=== PATIENT | male | born 1990 | race Caucasian/White ===

== ENCOUNTER 2017-02-07 19:41 | Emergency (ER) | payer OTHER ==
[~2017-02-07] VITALS: Ht 170.2 cm; Wt 74.0 kg
[2017-02-07 20:56] LABS: HEMATOCRIT 43.5 % (38.0-50.0); MCH 29.3 PG (29.0-34.0); MCHC 33.1 G/DL (30.0-36.0); MCV 88.4 FL (86-99); MEAN PLAT.VOLUME 10.3 uM^3 (9.0-12.4); PLATELET COUNT 239 K/uL (156-360); RBC DIS.WIDTH-CV 13.3 % (11.8-14.6); RBC DIS.WIDTH-SD 43.7 % (39-53); RED BLOOD COUNT 4.92 M/uL (4.00-5.50); WHITE BLOOD COUNT 6.8 K/uL (4.1-10.2)
[2017-02-07 21:05] LABS: CHLORIDE 105 mEq/L (99-109); POTASSIUM 3.8 mEq/L (3.7-5.4); SODIUM 140 mEq/L (136-147)
[2017-02-07 21:07] LABS: GLUCOSE 87 mg/dL (70-99)
[2017-02-07 21:08] LABS: ANION GAP 10 MEQ/L (2-14)
[2017-02-07 21:12] LABS: UREA NITROGEN (BUN) 14 mg/dL (9-23)
[2017-02-07 21:17] LABS: GFR ESTIMATE (CALCULATED) > 59 mL/min/
[2017-02-07 21:19] LABS: TROP-I INTERPRETATION NEGATIVE; TROPONIN-I < 0.01 ng/mL (0.0-0.30)
[2017-02-07 22:00] VITALS: BP 117/78
== END 2017-02-07 22:07 | disposition home or self-care (01) ==
LOC: EME 19:41
DX: R07.9 Chest pain, unspecified (principal); S39.012A Strain of muscle, fascia and tendon of lower back, initial encounter; M54.31 Sciatica, right side; G89.29 Other chronic pain; W18.2XXA Fall in (into) shower or empty bathtub, initial encounter; Y93.E1 Activity, personal bathing and showering; F17.200 Nicotine dependence, unspecified, uncomplicated; Z88.0 Allergy status to penicillin
CPT/HCPCS: 71020; 80048; 84484; 85027; 93005; 99281; 99283; J1885